=== PATIENT | male | born 1995 | race African-American/Black ===

== ENCOUNTER 2020-11-25 17:02 | Emergency (ER) | payer OTHER, SELFPAY ==
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
[2020-11-25 17:13] VITALS: BP 150/81; PULSE 98; RESP 16; TEMP 36.6; O2SAT 98; BMI 34.4
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
[2020-11-25] MEDS: Diphth,Pertus(ACell),Tet Adult 0.5 ML SYRINGE IM (18:24)
[2020-11-25 19:20] VITALS: PULSE 90; RESP 16; O2SAT 98
== END 2020-11-25 19:33 | disposition home or self-care (01) ==
PROVIDERS: Emergency Provider Internal Medicine
DX: S00.511A Abrasion of lip, initial encounter (principal); S00.91XA Abrasion of unspecified part of head, initial encounter; G44.309 Post-traumatic headache, unspecified, not intractable; M54.2 Cervicalgia; Y04.8XXA Assault by other bodily force, initial encounter; Y93.9 Activity, unspecified; Y92.9 Unspecified place or not applicable; Y99.9 Unspecified external cause status
CPT/HCPCS: 70450; 70486; 72125; 90471; 90715; 99284

== ENCOUNTER 2021-02-25 13:45 | Outpatient (REF) | payer OTHER, SELFPAY | END 2021-02-25 13:46 | disposition home or self-care (01) | LOC: HO.LAB 13:45 | PROVIDERS: Visit Provider Internal Medicine | DX: Z20.822 Contact with and (suspected) exposure to COVID-19 (principal) | CPT/HCPCS: C9803; U0003; U0005 ==

== ENCOUNTER 2023-02-25 21:51 | Emergency (ER) | payer OTHER, SELFPAY ==
[2023-02-25 22:11] VITALS: BP 127/77; PULSE 93; RESP 18; TEMP 36.3; O2SAT 97; BMI 33.0
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
--- OUTSIDE RECORDS SUMMARY | 2023-02-26 00:16 | XMS_ITS | Continuity of Care Document ---
Author Name Unknown Organization [facility] ter Address [address] [place] [id number]- Care Team Providers Care Home Health Clinician Name Role Phone Dennis Rolon MD Primary Care Physician [phone] [place] [facility] [place] - 11/24/[address] [address]- Discharge Disposition: A-D/C Home Attending Physician: Rica GREENWOOD, Sterling Gray Admitting Physician: Sterling Strauss MD Referring Physician: Not on Staff, Referring MD Allergies, Adverse Reactions, Alerts No Known Allergies Medications Bactrim DS 800 mg-160 mg oral tablet 1 tablet, By Mouth, 2 times a day, # 20 tablet, 0 Refills, Maintenance, 04/27/19 10:03:12 EDT Start Date: 04/27/19 Stop Date: 05/07/19 Status: Ordered Bactroban 2% ointment w/applicator 1 application, Topically, 2 times a day, # 10 each, 0 Refills, Maintenance, 04/27/19 10:06:48 EDT, Ointment Start Date: 04/27/19 Status: Ordered ciprofloxacin 500 mg oral tablet 1 tablet = 500 mg, By Mouth, 2 times a day, for 5 days, # 10 tablet, 0 Refills, Acute 11/28/21 23:32:00 EDT, 11/23/21 23:32:00 EDT, [facility] #[id number], Partial fill upon patient request if the prescription is for a schedule II opioid drug. Start Date: 11/23/21 Stop Date: 11/28/21 Status: Ordered ibuprofen 400 mg oral tablet 400 mg, 1, tablet, By Mouth, Every 4 hours, PRN, not to exceed 3200 mg/day, # 60 tablet, Refills 0,Tot. Refills 0, Acute 12/24/21 8:00:00 EDT, for pain, 11/23/21 23:32:00 EDT, Route to Pharmacy Electronically, [facility] #[id number], Partial maggi... Start Date: 11/23/21 Stop Date: 12/24/21 Status: Ordered ibuprofen 600 mg oral tablet [...] day, # 40 capsule, 0 Refills, Maintenance, 04/27/19 10:03:14 EDT Start Date: 04/27/19 Stop Date: 05/07/19 Status: Ordered magnesium gluconate 500 mg oral tablet 1 tablet = 500 mg, By Mouth, Daily, For preventive treatment of migraine, # 30 tablet, 5 Refills, Maintenance Start Date: 09/30/11 Status: Ordered ondansetron 4 mg oral tablet, disintegrating 1 tablet = 4 mg, By Mouth, Every 8 hours, PRN as needed for nausea/vomiting, allow tablet to dissolve on tongue, # 12 tablet, 0 Refills, Acute 12/24/21 8:00:00 EDT, 11/23/21 23:32:00 EDT, DIS Tablet,[facility] #[id number], Partial fill upon jose... Start Date: 11/23/21 Stop Date: 12/24/21 Status: Ordered riboflavin 100 mg oral tablet See Instructions, 2 tablets by moth twice a day for preventive treatment of migraine, # 120 tablet,5 Refills, Maintenance Start Date: 09/30/11 Status: Ordered Tylenol 325 mg oral tablet 650 mg, 2, tablet, By Mouth, Every 4 hours, PRN, not to exceed 4000 mg/day, # 120 tablet, Refills 0, Tot. Refills 0, Acute 12/24/21 8:00:00 EDT, for pain, 11/23/21 23:32:00 EDT, Route to Pharmacy Electronically, [facility] #[id number], Partial fi... Start Date: 11/23/21 Stop Date: 12/24/21 Status: Ordered Problem List Condition Effective Dates Status Health Status Inform ant Migraine with aura(Confirmed) Active Vital Signs Most recent to oldest [Reference Range]: 1 2 3 Oxygen Saturation [94-100 %] 96 % (11/24/21 1:43 AM) 99 % (11/23/21 9:40 PM) 100 % (11/23/21 8:04 PM) Pulse Rate [55-90 bpm] 79 bpm (11/24/21 1:43 AM) 88 bpm (11/23/21 9:40 PM) 101 bpm *H* (11/23/21 8:04 PM) Blood Pressure [90-138/55-84 mm Hg] 129/75mm Hg (11/24/21 1:43 AM) 124/68mm Hg (11/23/21 9:40 PM) 129/67mm Hg (11/23/21 8:04 PM) Respiratory Rate [16-30 br/min] 16 br/min (11/24/21 1:43 AM) 18 br/min (11/23/21 9:40 PM) 18 br/min (11/23/21 8:04 PM) Temperature [96.8-100.4 DegF] 98.5 DegF (11/24/21 1:43 AM) 99.4 DegF (11/23/21 9:40 PM) 101.0 DegF *H* (11/23/21 8:04 PM) Mode of Delivery (Oxygen) Room air (11/24/21 1:43 AM) Room air (11/23/21 9:40 PM) Room air (11/23/21 8:04 PM) Blood pressure sites Arm, right (11/24/21 1:43 AM) Arm, right (11/23/21 9:40 PM) Arm, right (11/23/21 8:04 PM) Temperature Route Oral (11/24/21 1:43 AM) Oral (11/23/21 9:40 PM) Oral (11/23/21 8:04 PM)
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
[2023-02-26] MEDS: Bacitracin Oint 0.9 GM PACKET 1 APPL TOPICAL (01:35)
== END 2023-02-26 01:38 | disposition home or self-care (01) ==
PROVIDERS: Emergency Provider Emergency Medicine
DX: T23.102A Burn of first degree of left hand, unspecified site, initial encounter (principal); T31.0 Burns involving less than 10% of body surface; X08.8XXA Exposure to other specified smoke, fire and flames, initial encounter; Y93.9 Activity, unspecified; Y92.9 Unspecified place or not applicable; Y99.9 Unspecified external cause status
CPT/HCPCS: 99283; 99284

== ENCOUNTER 2023-08-04 22:17 | Emergency (ER) | payer OTHER, SELFPAY ==
[2023-08-04 22:19] VITALS: BP 145/73; PULSE 87; RESP 18; TEMP 36.6; O2SAT 99; BMI 34.4
== END 2023-08-05 01:33 | disposition left against medical advice (07) ==
PROVIDERS: Emergency Provider Emergency Medicine
DX: M54.50 Low back pain, unspecified (principal)
CPT/HCPCS: 99281